=== PATIENT | female | born 1985 | race African-American/Black ===

== ENCOUNTER 2021-01-27 11:03 | Emergency (ER) | payer MEDICAID, OTHER ==
[~2021-01-27] VITALS: Ht 177.8 cm; Wt 63.5 kg
[2021-01-27] MEDS ORDERED: PREVACID (11:11)
[2021-01-27] MEDS ORDERED: HYDROMORPHONE 1 MG/1 ML DISP.SYRIN IV ONE (11:30)
[2021-01-27] MEDS ORDERED: IV NORMAL SALINE 1000 ML BAG IV ONE (11:30)
[2021-01-27] MEDS ORDERED: ONDANSETRON 4 MG/2 ML VIAL IV ONE (11:30)
[2021-01-27] MEDS ORDERED: ONDANSETRON 4 MG/2 ML VIAL ONE (11:44)
[2021-01-27] MEDS ORDERED: HYDROMORPHONE 1 MG/1 ML DISP.SYRIN ONE (11:45)
[2021-01-27 11:46] LABS: BASOPHILS # (AUTO) 0.1 K/uL (0.0-8.0); BASOPHILS % (AUTO) 0.9 % (0.0-2.0); EOSINOPHILS # (AUTO) 0.1 K/uL (0.0-0.7); EOSINOPHILS % (AUTO) 1.1 % (0.0-7.0); HEMOGLOBIN 13.7 g/dL (10.9-14.3); LYMPHOCYTES # (AUTO) 2.1 K/uL (20.0-40.0); LYMPHOCYTES % (AUTO) 29.5 % (20.5-51.5); MEAN CORPUSCULAR HEMOGLOBIN 22.9 uug (24.7-32.8); MEAN CORPUSCULAR HGB CONC 32 g/dL (32.3-35.6); MEAN CORPUSCULAR VOLUME 71.9 fL (75.5-95.3); MONOCYTES # (AUTO) 0.8 K/uL (2.0-10.0); MONOCYTES % (AUTO) 11.6 % (0.0-11.0); NEUTROPHILS % (AUTO) 56.9 % (38.5-71.5); PLATELET COUNT (AUTO) 272 K/uL (179-408); RED BLOOD CELL COUNT(AUTO) 5.98 MIL/uL (3.63-4.92); WHITE BLOOD COUNT (AUTO) 7.1 K/uL (3.8-11.8)
[2021-01-27 12:01] LABS: ALANINE AMINOTRANSFERASE 46 U/L (14-59); ALKALINE PHOSPHATASE 78 U/L (50-136); ASPARTATE AMINOTRANSFERASE 19 U/L (15-37); BILIRUBIN,DIRECT 0.1 mg/dL (0.0-0.2); BILIRUBIN,TOTAL 0.5 mg/dL (0.2-1.0); CARBON DIOXIDE 32 mmol/L (21-32); CHLORIDE 96 mmol/L (98-107); CREATININE 0.7 mg/dL (0.6-1.3); GLUCOSE 111 mg/dL (74-106); LIPASE 311 U/L (73-393); POTASSIUM 2.9 mmol/L (3.5-5.1); UREA NITROGEN, BLOOD 18 mg/dL (7-18)
[2021-01-27] MEDS ORDERED: POTASSIUM CHLORIDE 20 MEQ TAB.PRT.SR ONE (12:44)
[2021-01-27] MEDS ORDERED: POTASSIUM CHLORIDE 20 MEQ TAB.PRT.SR PO ONE (12:45)
--- NOTE | 2021-01-27 12:55 | NUR ---
Patient was seen by MD. Medications given as ordered. CT Done. Patient states pain has diminished some.
[2021-01-27] MEDS ORDERED: ONDA4TAB5 PO (13:10)
[2021-01-27] MEDS ORDERED: MAGNESIUM HYDROXIDE 30 ML LIQUID UDC PO ONE (13:15)
[2021-01-27] MEDS ORDERED: MAGNESIUM CITRATE 296 ML BOTTLE PO ONE (13:15)
[2021-01-27 13:17] LABS: *BILIRUBIN,URIN 1+ (NEGATIVE); *BLOOD, URINE 1+ (NEGATIVE); *CLARITY,URINE CLEAR (CLEAR); *COLOR,URINE YELLOW (YELLOW); *KETONES,URINE NEGATIVE (NEGATIVE); LEUKOCYTE ESTERASE ,URINE NEGATIVE (NEGATIVE); NITRITE, URINE NEGATIVE (NEGATIVE); PH,URINE 6.5 (5.0-8.0); UGLUCOSE NEGATIVE (NEGATIVE)
[2021-01-27] MEDS ORDERED: MAGNESIUM HYDROXIDE 30 ML LIQUID UDC ONE (13:21)
[2021-01-27] MEDS ORDERED: MAGNESIUM CITRATE 296 ML BOTTLE ONE (13:22)
[2021-01-27 13:31] LABS: MUCUS,URINE MANY /LPF (0-FEW); SQUAMOUS EPITHELIAL CELL,UR FEW /HPF (NONE SEEN)
[2021-01-27 13:34] LABS: BACTERIA,URINE FEW /HPF (NONE SEEN); RBC,URINE 0-3 /HPF (0-3); WBC,URINE 0-3 /HPF (0-3)
--- NOTE | 2021-01-27 13:52 | NUR ---
No nausea or vomiting. Patient was able to eat crackers and drink 8 0z of water. Patient states pain has diminished
--- NOTE | 2021-01-27 13:53 | NUR ---
IV removed. Catheter intact and site benign. Pressure and 4x4 gauze applied to site. No bleeding noted.
--- NOTE | 2021-01-27 13:53 | NUR ---
DC AND FOLLOW UP INSTRUCTIONS GIVEN AND EXPLAINED TO PATIENT WHO STATES HE UNDERSTANDS ALL INSTRUCTIONS. instructed not to drive due to dilaudid
== END 2021-01-27 13:55 | disposition home or self-care (01) ==
LOC: ER 11:04
DX: K59.00 Constipation, unspecified (principal); R11.2 Nausea with vomiting, unspecified; K29.70 Gastritis, unspecified, without bleeding; Z79.899 Other long term (current) drug therapy
CPT/HCPCS: 36415; 74176; 80048; 80076; 81001; 83690; 84702; 85025; 96361; 96374; 96375; 99284; J1170; J2405; A4663; J7030

== ENCOUNTER 2021-02-14 17:38 | Emergency (ER) | payer OTHER ==
[~2021-02-14] VITALS: Ht 175.3 cm; Wt 63.5 kg
[~2021-02-14 17:38] MED LIST: ONDA4TAB5 PO; PREVACID
[2021-02-14] MEDS ORDERED: AZITHROMYCIN 250 MG TABLET PO ONE (18:00)
--- NOTE | 2021-02-14 18:00 | NUR ---
Gave pt RX and d/c instructions, pt verbalized understanding.
[2021-02-14] MEDS ORDERED: AZITHROMYCIN 250 MG TABLET ONE (18:03)
== END 2021-02-14 18:07 | disposition home or self-care (01) ==
LOC: ER 17:38
DX: L01.00 Impetigo, unspecified (principal)
CPT/HCPCS: A4663; Q0144

== ENCOUNTER 2021-04-25 16:34 | Emergency (ER) | payer OTHER ==
[~2021-04-25] VITALS: Ht 177.8 cm; Wt 73.0 kg
--- NOTE | 2021-04-25 17:05 | NUR ---
PT IS IN ROOM #1A. DR CALVO EVALUATED THE PT.
[2021-04-25] MEDS ORDERED: IV NORMAL SALINE 1000 ML BAG IV ONE (17:45)
[2021-04-25] MEDS ORDERED: KETOROLAC TROMETHAMINE 15 MG INJ ONE (18:11)
[2021-04-25] MEDS ORDERED: METOCLOPRAMIDE HCL 10 MG/2 ML VIAL ONE (18:11)
[2021-04-25] MEDS ORDERED: METOCLOPRAMIDE HCL 10 MG/2 ML VIAL IV ONE (18:15)
[2021-04-25] MEDS ORDERED: KETOROLAC TROMETHAMINE 15 MG INJ IVP ONE (18:15)
[2021-04-25 18:19] LABS: HEMATOCRIT 36.3 % (31.2-41.9); MEAN CORPUSCULAR HEMOGLOBIN 22.4 uug (24.7-32.8); MEAN CORPUSCULAR VOLUME 72.8 fL (75.5-95.3); PLATELET COUNT (AUTO) 244 K/uL (179-408)
[2021-04-25 18:27] LABS: CARBON DIOXIDE 25 mmol/L (21-32); CHLORIDE 108 mmol/L (98-107); CREATININE 0.6 mg/dL (0.6-1.3); GLUCOSE 92 mg/dL (74-106); UREA NITROGEN, BLOOD 16 mg/dL (7-18)
[2021-04-25] MEDS ORDERED: diphenhydrAMINE 50 MG/1 ML VIAL ONE (18:29)
[2021-04-25] MEDS ORDERED: diphenhydrAMINE 50 MG/1 ML VIAL IV ONE (18:30)
[2021-04-25 18:33] LABS: ALANINE AMINOTRANSFERASE 88 U/L (14-59); ALKALINE PHOSPHATASE 79 U/L (50-136); ASPARTATE AMINOTRANSFERASE 30 U/L (15-37); BILIRUBIN,DIRECT 0.1 mg/dL (0.0-0.2); BILIRUBIN,TOTAL 0.2 mg/dL (0.2-1.0); LIPASE 307 U/L (73-393); TOTAL PROTEIN, SERUM 6.9 g/dL (6.4-8.2)
--- NOTE | 2021-04-25 18:50 | NUR ---
PT ELOPED AFTER TALKING TO DR JULIEN. CONTRACT PROGRAMMER JESSE AND DR JULIEN NOTIFIED.
[2021-04-25 19:32] LABS: LYMPHOCYTES % (MANUAL) 35 % (20-40); NEUTROPHILS % (MANUAL) 58 % (42-75)
[2021-04-25 19:33] LABS: EOSINOPHILS % (MANUAL) 1 % (0-8); MONOCYTES % (MANUAL) 6 % (2-10)
== END 2021-04-25 18:54 | disposition left against medical advice (07) ==
LOC: ER 16:34
DX: R11.2 Nausea with vomiting, unspecified (principal)
CPT/HCPCS: 36415; 80048; 80076; 83690; 84484; 84702; 85007; 85025; 96361; 96374; 96375; 99284; J1200; J1885; J2765; 70030-TC; A4663; J7030